=== PATIENT | female | born 1985 | race African-American/Black ===

== ENCOUNTER 2017-05-14 12:47 | Emergency (ER) | payer OTHER ==
[2017-05-14] MEDS: DIPHENHYDRAMINE 50 MG INJ IM (13:36)
[2017-05-14] MEDS: METHYLPREDNISOLONE 125 MG INJ IM (13:36)
[2017-05-14] MEDS: FAMOTIDINE 20 MG TAB PO (13:37)
== END 2017-05-14 13:51 | disposition home or self-care (01) ==
LOC: FTE 12:47
DX: L50.9 Urticaria, unspecified (principal); T78.40XA Allergy, unspecified, initial encounter
CPT/HCPCS: 96372; 99284-25